=== PATIENT | male | born 1955 | race Caucasian/White ===

== ENCOUNTER 2022-09-14 14:27 | Emergency (ER) | payer MEDICARE ==
[2022-09-14] MEDS ORDERED: Sodium Chloride 0.9% 10 ML Syringe FLUSH PRN (14:47)
[2022-09-14] MEDS ORDERED: Albuterol/Ipratropium 3.0-0.5 MG/3 ML Neb Soln NEB ONE ×3 (15:03→18:15)
[2022-09-14 15:36] LABS: PTT,PARTIAL THROMBOPLSTIN TIME 24.2 SEC (22.0-34.0)
[2022-09-14 15:38] LABS: ANION GAP 6.6 mEq/L (7-13); CHLORIDE,CL 95 mmol/L (98-107); SODIUM,NA 139 mmol/L (136-145)
[2022-09-14 15:39] LABS: ESTIMATED GFR 97 mL/min (>=60)
[2022-09-14] MEDS ORDERED: methylPREDNISolone Sodium Succinate 125 MG/2 ML SDV IVPUSH ONE (15:50)
[2022-09-14 15:52] LABS: CORONAVIRUS COVID-19 NAA NEGATIVE (NEGATIVE); RESPIRATORY SYNCYTIAL VIR NAA NEGATIVE (NEGATIVE)
[2022-09-14] MEDS ORDERED: Potassium Chloride 10 MEQ Tab.ER PO ONE (16:22)
[2022-09-14] MEDS ORDERED: Potassium Chloride 20 MEQ in Premix Bag 1 BAG IV ONE (16:23)
[2022-09-14 16:48] LABS: O2 DELIVERY DEVICE ROOM AIR
[2022-09-14 16:49] LABS: PCO2 ARTERIAL 54 mmHg (35-45)
[2022-09-14 16:51] LABS: ALLEN TEST POSITIVE; BASE EXCESS ARTERIAL 16 mmol/L ((-2)-(+3)); BICARBONATE,ARTERIAL 39.7 mmol/L (22-26); O2 SATURATION ARTERIAL 71 % (95-100); PO2 ARTERIAL 35 mmHg (70-100)
[2022-09-14] MEDS ORDERED: Azithromycin 250 MG Tab PO ONE (18:49)
[2022-09-14] MEDS ORDERED: Albuterol 6.7 GM Inhaler INH ONE (19:54)
== END 2022-09-14 20:03 | disposition home or self-care (01) ==
LOC: DL.ED 14:27
DX: R09.02 Hypoxemia (principal); E87.6 Hypokalemia; E83.42 Hypomagnesemia; R06.89 Other abnormalities of breathing; F17.210 Nicotine dependence, cigarettes, uncomplicated; Z88.0 Allergy status to penicillin; Z79.82 Long term (current) use of aspirin; Z79.899 Other long term (current) drug therapy; Z20.822 Contact with and (suspected) exposure to COVID-19
CPT/HCPCS: 0241U; 36415; 36600; 71045; 80053; 80307; 82803; 83605; 83735; 83880; 84145; 84484; 85025; 85379; 85610; 85730; 86140; 93005; 93010; 94640; 96365; 96366; 96375; 99284; A9270; J2930; J3480; J3490; J7620-GY